=== PATIENT | male | born 2000 | race Caucasian/White ===

== ENCOUNTER 2025-05-13 00:08 | Emergency (ER) | payer SELFPAY ==
[~2025-05-13] VITALS: Ht 170.2 cm; Wt 66.3 kg
[2025-05-13 00:26] VITALS: O2SAT 100
[2025-05-13] MEDS: ONDANSETRON HCL 4MG/2ML INJ IV ONE (01:24)
[2025-05-13] MEDS: MORPHINE SULFATE 4 MG/ML INJ (FOR IV/IM USE) IV ONE (01:25)
[2025-05-13 01:39] LABS: BASOPHILS % 1.1 % (0.0-2.0); EOSINOPHILS % 1.2 % (0.0-5.0); HEMATOCRIT. 40.4 % (42.0-52.0); HEMOGLOBIN. 13.9 g/dL (14.0-18.0); LYMPHOCYTES % 41.8 % (20.0-50.0); MEAN PLATELET VOLUME 7.9 fl (7.4-10.4); MONOCYTES % 11.2 % (2.0-8.0); NEUTROPHILS % 44.7 % (40.0-76.0); PLATELET 280 x1000/uL (130-400); RED BLOOD CELL COUNT 4.26 mill/uL (4.7-6.1); RED CELL DISTRIBUTION WIDTH 12.3 % (11.6-14.6)
[2025-05-13 01:54] LABS: CREATININE 0.8 mg/dL (0.6-1.3); UREA NITROGEN BLOOD 7 mg/dL (9-23)
[2025-05-13 01:55] LABS: ASPARTATE AMINOTRANSFERASE 20 IU/L (<34)
[2025-05-13 01:56] LABS: BILIRUBIN DIRECT 0.2 mg/dL (<=3.0); BILIRUBIN TOTAL 0.6 mg/dL (0.1-1.0); PROTEIN TOTAL 7.1 g/dL (6.0-8.3)
[2025-05-13] MEDS ORDERED: FAMO-135 MT (03:03)
[2025-05-13 03:20] VITALS: BP 111/45; PULSE 68; RESP 13; TEMP 36.7; O2SAT 99
== END 2025-05-13 03:30 | disposition home or self-care (01) ==
LOC: ER 00:08
DX: R10.11 Right upper quadrant pain (principal)
CPT/HCPCS: 80076; 80048; 83690; 85025; 36415; 74176; 76705; 96374; 96375; 99285; J2405; J2270; Z7610